=== PATIENT | male | born 1975 | race African-American/Black ===

== ENCOUNTER 2020-12-07 16:08 | Emergency (ER) | payer OTHER, SELFPAY ==
[2020-12-07] MEDS ORDERED: Orphenadrine Citrate 60 MG/2 ML VIAL ONE (16:46)
== END 2020-12-07 18:20 | disposition home or self-care (01) ==
LOC: MADERS 16:08
DX: M79.18 Myalgia, other site (principal); I10 Essential (primary) hypertension; F17.210 Nicotine dependence, cigarettes, uncomplicated; Z79.899 Other long term (current) drug therapy
CPT/HCPCS: 72125; 96372; J2360

== ENCOUNTER 2021-03-17 14:04 | Emergency (ER) | payer OTHER ==
[2021-03-17] MEDS ORDERED: Ibuprofen 800 MG TAB ONE (15:36)
[2021-03-17] MEDS ORDERED: Cyclobenzaprine 10 MG TAB ONE (15:36)
== END 2021-03-17 15:51 | disposition home or self-care (01) ==
LOC: MADERS 14:04
DX: S39.012A Strain of muscle, fascia and tendon of lower back, initial encounter (principal); S83.91XA Sprain of unspecified site of right knee, initial encounter; I10 Essential (primary) hypertension; F17.210 Nicotine dependence, cigarettes, uncomplicated; G56.01 Carpal tunnel syndrome, right upper limb; W01.0XXA Fall on same level from slipping, tripping and stumbling without subsequent striking against object, initial encounter; Y93.01 Activity, walking, marching and hiking; Z79.899 Other long term (current) drug therapy
CPT/HCPCS: 72100

== ENCOUNTER 2024-03-30 23:59 | Emergency (ER) | payer OTHER ==
[2024-03-31] MEDS ORDERED: Ketorolac Tromethamine 60 MG/2 ML VIAL ONE (00:55)
[2024-03-31] MEDS ORDERED: HYDROcodone/Acetaminophen 10/325 mg Tablet ONE (00:55)
== END 2024-03-31 01:27 | disposition home or self-care (01) ==
LOC: MADERS 23:59
DX: M51.369 Other intervertebral disc degeneration, lumbar region without mention of lumbar back pain or lower extremity pain (principal); M79.604 Pain in right leg; I10 Essential (primary) hypertension; R73.03 Prediabetes; F17.210 Nicotine dependence, cigarettes, uncomplicated
CPT/HCPCS: 96372; 99283; J1885